=== PATIENT | female | born 1955 | race Caucasian/White ===

== ENCOUNTER 2021-04-27 09:23 | Emergency (ER) | payer OTHER ==
[~2021-04-27 09:23] MED LIST: BACTRIM DS TAB1 EACH PO
[2021-04-27] MEDS ORDERED: BACLOFEN 10MG T10 MG PO (14:20)
[2021-04-27] MEDS ORDERED: ULTRAM50 MG PO (14:20)
== END 2021-04-27 14:45 | disposition home or self-care (01) ==
LOC: FER 09:23
DX: M54.41 Lumbago with sciatica, right side (principal); E11.9 Type 2 diabetes mellitus without complications; I10 Essential (primary) hypertension; F17.210 Nicotine dependence, cigarettes, uncomplicated; Z79.84 Long term (current) use of oral hypoglycemic drugs; Z79.899 Other long term (current) drug therapy
CPT/HCPCS: 73502; 96372; J1100; J1885